=== PATIENT | female | born 1990 | race Caucasian/White ===

== ENCOUNTER 2016-09-30 14:37 | Emergency (ER) | payer SELFPAY ==
--- NOTE | 2016-09-30 14:52 | ED Physician Documentation ---
PD HPI NVD - Stated complaint Stated Complaint: N/V - Chief complaint Chief Complaint: Abd Pain - History obtained from History obtained from: Patient, Family - History of Present Illness Timing - onset: How many days ago (5) Timing - duration: Days (5) Timing - details: Waxing and waning Pain level max: 0 Pain level now: 0 Associated symptoms: Other (states unable to tolerated solid food for 5 days. Water sometimes stays down.). No: Fever, Abdominal pain, Chest pain, Hematemesis, Melena, Hematochezia, Dysuria, Hematuria, Vaginal bleeding Contributing factors: No: Sick contact, Bad food, Travel, Recent antibiotics, Alcohol use, Anticoagulated, Diabetes Improved by: Vomiting Worsened by: Eating Similar symptoms before: Has not had sx before Recently seen: Not recently seen - Additonal information Additional information: marijuana and zofran did not help. Vomiting and diarrhea x5 days. Vomits 4-5x per day. Diarrhea 2-3 times daily. Review of Systems Constitutional: denies: Fever, Chills Ears: denies: Ear pain Nose: denies: Rhinorrhea / runny nose, Congestion Respiratory: denies: Cough GI: reports: Nausea, Vomiting. denies: Diarrhea, Hematemesis, Bloody / black stool : reports: LMP (now). denies: Now EGA Skin: denies: Rash Musculoskeletal: denies: Neck pain, Back pain Neurologic: denies: Focal weakness, Numbness, Headache PD PAST MEDICAL HISTORY - Past Medical History Past Medical History: Yes Neuro: Headache/migraine Psych: Depression (post ) - Past Surgical History Past Surgical History: No - Present Medications Home Medications: Ambulatory Orders Medication Instructions Recorded Confirmed Ethinyl Estradiol/Drospirenone 1 tab PO DAILY 09/30/16 09/30/16 [Romina 28 Tablet] Ondansetron Odt [Zofran] 4 mg TL Q6H PRN #10 tablet 09/30/16 Promethazine [Phenergan] 25 mg PO Q6H PRN #10 tab 09/30/16 - Allergies Allergies/Adverse Reactions: Allergies Allergy/AdvReac Type Severity Reaction Status Date / Time azithromycin Allergy Anaphylaxis Verified 08/23/14 03:12 clindamycin Allergy Anaphylaxis Verified 09/30/16 14:41 Penicillins Allergy Anaphylaxis Verified 08/23/14 03:12 Sulfa (Sulfonamide Allergy Hives Verified 08/23/14 03:12 Antibiotics) - Living Situation Living Arrangement: reports: At home - Social History Does the pt smoke?: No Smoking Status: Never smoker Does the pt drink ETOH?: Yes Does the pt have substance abuse?: No - Immunizations Immunizations are current?: Yes - POLST Patient has POLST: No PD ED PE NORMAL - Vitals Vital signs reviewed: Yes - General General: Alert and oriented X 3, No acute distress - HEENT HEENT: Moist mucous membranes - Neck Neck: Supple, no meningeal sign - Cardiac Cardiac: RRR, Strong equal pulses - Respiratory Respiratory: No respiratory distress, Clear bilaterally - Abdomen Abdomen: Soft, Non tender, Non distended - Derm Derm: Warm and dry - Neuro Neuro: Alert and oriented X 3 - Psych Psych: Normal mood, Normal affect Results - Vitals Vitals: Vital Signs - 24 hr 09/30/16 09/30/16 09/30/16 14:39 17:01 18:16 Temperature 36.0 C L 36.8 C Heart Rate 78 69 53 L Respiratory 14 14 15 Rate Blood Pressure 110/75 121/94 H 113/77 O2 Saturation 100 99 99 Oxygen O2 Source Room air - Labs Labs: Laboratory Tests 09/30/16 09/30/16 09/30/16 15:18 15:31 15:31 WBC 6.2 RBC 4.44 Hgb 13.0 Hct 38.9 MCV 87.7 MCH 29.3 MCHC 33.4 RDW 13.6 Plt Count 196 MPV 9.3 Neut # 4.5 Lymph # 1.2 L [place] # 0.5 Eos # 0.0 Baso # 0.0 Absolute Nucleated RBC 0.00 Nucleated RBCs 0.0 Sodium 142 Potassium 3.4 L Chloride 107 Carbon Dioxide 25 Anion Gap 10.0 BUN 9 Creatinine 0.9 Estimated GFR (MDRD) 77 L Glucose 91 Calcium 9.3 Total Bilirubin 0.8 AST 16 ALT 21 Alkaline Phosphatase 50 Total Protein 7.9 Albumin 4.3 Globulin 3.6 Albumin/Globulin Ratio 1.2 Lipase 22 Urine Color YELLOW Urine Clarity HAZY Urine pH 6.0 Ur Specific [place] >=1.030 H Urine Protein 30 H Urine Glucose (UA) NEGATIVE Urine Ketones 40 H Urine Occult Blood SMALL H Urine Nitrite NEGATIVE Urine Bilirubin NEGATIVE Urine Urobilinogen 0.2 (NORMAL) Ur Leukocyte Esterase NEGATIVE Urine RBC 0-5 Urine WBC 0-3 Ur Squamous Epith Cells MANY Squamous H Urine Bacteria Few Urine Mucus Marked Strands Ur Microscopic Review INDICATED Urine Culture Comments NOT INDICATED Urine HCG, Qual NEGATIVE PD MEDICAL DECISION MAKING - ED course Complexity details: reviewed results, re-evaluated patient, considered differential, d/w patient ED course: Patient is a 26-year-old female who presents to the emergency department with nausea vomiting and diarrhea for the past 5 days. No recent antibiotics. Given IV fluids, Zofran and Phenergan. Vomiting resolved and is tolerating p.o. without difficulty. No diarrhea here. Abdomen is soft, nontender nondistended on serial exam. No longer lightheaded with standing. Likely viral gastroenteritis. Will continue supportive care and follow-up with her doctor. There is no blood in the stool or emesis. No fevers. Patient counseled regarding signs and symptoms for which I believe and urgent re- evaluation would be necessary. Patient with good understanding of and agreement to plan and is comfortable going home at this time This document was made in part using voice recognition software. While efforts are made to proofread this document, sound alike and grammatical errors may occur. Departure - Departure Disposition: 01 Home, Self Care Clinical Impression: Gastroenteritis Condition: Good Instructions: ED Gastroenteritis Non Infec Follow-Up: Daniela Domínguez MD [Primary Care Provider] - Within 1 week Prescriptions: Promethazine [Phenergan] 25 mg PO Q6H PRN #10 tab PRN Reason: Nausea / Vomiting Ondansetron Odt [Zofran] 4 mg TL Q6H PRN #10 tablet PRN Reason: Nausea / Vomiting Comments: Return if you worsen. This should improve over the next 24-48 hours. Discharge Date/Time: 09/30/16 18:30
[2016-09-30] MEDS ORDERED: SODIUM CHLORIDE 0.9% 1,000 ML IV ONE ×2 (15:02→17:07)
[2016-09-30] MEDS ORDERED: ONDANSETRON 4 MG/2 ML VIAL IVP STA (15:15)
[2016-09-30] MEDS ORDERED: SODIUM CHLORIDE FLUSH 0.9% 10 ML SYRINGE IVP ONE ×2 (15:19→16:27)
[2016-09-30] MEDS ORDERED: ONDANSETRON 4 MG/2 ML VIAL ONE (15:19)
[2016-09-30 15:39] LABS: BILIRUBIN,URINE NEGATIVE (NEGATIVE); HCG UR QUAL NEGATIVE; UA w/ MICROSCOPIC CHARGE YES
[2016-09-30] MEDS ORDERED: PROMETHAZINE INJ 25 MG in SODIUM CHLORIDE 0.9% 50 ML IV STA (15:57)
[2016-09-30 15:59] LABS: UR CULTURE IF IND NOT INDICATED; WBC,URINE 0-3 /HPF (0-5)
[2016-09-30 16:01] LABS: BASOPHILS % (AUTO) 0.4 %; EOSINOPHILS % (AUTO) 0.2 %; HCT - HEMATOCRIT 38.9 % (37.0-47.0); LYMPHOCYTES # (AUTO) 1.2 10^3/uL (1.5-3.5); LYMPHOCYTES % (AUTO) 19.8 %; MEAN CORPUSCULAR HEMOGLOBIN 29.3 pg (27.0-31.0); MEAN CORPUSCULAR HGB CONC 33.4 g/dL (32.0-36.0); MEAN CORPUSCULAR VOLUME 87.7 fL (81.0-99.0); MEAN PLATELET VOLUME 9.3 fL (7.9-10.8); MONOCYTES # (AUTO) 0.5 10^3/uL (0.0-1.0); MONOCYTES % (AUTO) 7.3 %; NEUTROPHILS # (AUTO) 4.5 10^3/uL (1.5-6.6); NEUTROPHILS % (AUTO) 72.3 %; RED BLOOD COUNT 4.44 10^6/uL (4.20-5.40); RED CELL DISTRIBUTION WIDTH 13.6 % (12.0-15.0); UNCORRECTED WHITE BLOOD COUNT 6.2 x10^3/uL; WHITE BLOOD COUNT 6.2 x10^3/uL (4.8-10.8)
[2016-09-30 16:06] LABS: ALBUMIN/GLOBULIN RATIO 1.2 (1.0-2.2); BILIRUBIN,TOTAL 0.8 mg/dL (0.2-1.0); CALCIUM 9.3 mg/dL (8.5-10.3); CREATININE 0.9 mg/dL (0.4-1.0); POTASSIUM 3.4 mmol/L (3.5-5.0); TOTAL PROTEIN 7.9 g/dL (6.7-8.2)
[2016-09-30] MEDS ORDERED: PROMETHAZINE 25 MG/1 ML VIAL ONE (16:27)
[2016-09-30 18:17] VITALS: BP 113/77
== END 2016-09-30 18:30 | disposition home or self-care (01) ==
LOC: ED 14:37
DX: K52.9 Noninfective gastroenteritis and colitis, unspecified (principal)
CPT/HCPCS: 36415; 80053; 81001; 81025; 83690; 85025; 96361; 96365; 96375; 99284; J7040; 81003; 87086

== ENCOUNTER 2019-06-25 19:26 | Outpatient (CLI) | payer MEDICAID | END 2019-06-25 19:27 | disposition home or self-care (01) | LOC: COV 19:26 | PROVIDERS: ATTEND Family Medicine | DX: R50.9 Fever, unspecified (principal); M79.10 Myalgia, unspecified site; R53.83 Other fatigue; J02.9 Acute pharyngitis, unspecified | CPT/HCPCS: 81599 ==

== ENCOUNTER 2020-01-18 13:25 | Emergency (ER) | payer MEDICAID ==
--- NOTE | 2020-01-18 14:13 | ED Physician Documentation ---
History of Present Illness - Stated complaint Stated Complaint: HEADACHE, SORE THROAT, BODY ACHES - Chief complaint Chief Complaint: General - History obtained from History obtained from: Patient - Additonal information Additional information: Patient comes emergency department complaining of runny nose, fatigue, and chills, as well as diarrhea and nausea, and is concerned about possible Covid exposure. She states that her daughter spent Thanksgiving with the daughter's father, who told the patient that he had a guest who had upper respiratory symptoms. Is not known whether the person ended up testing positive for Covid, but patient was told that her daughter "may have been" exposed to Covid. The daughter is not sick. The patient states she started to get symptoms last night. She states she has also vomited twice today. No fevers. No other complaints at this time. Review of Systems Ten Systems: 10 systems reviewed and negative Constitutional: reports: Chills, Fatigue Eyes: reports: Reviewed and negative Ears: reports: Reviewed and negative Nose: reports: Rhinorrhea / runny nose, Congestion Throat: reports: Reviewed and negative Cardiac: reports: Reviewed and negative. denies: Chest pain / pressure Respiratory: reports: Cough (When lying down.). denies: Dyspnea GI: reports: Nausea, Vomiting, Diarrhea : reports: Reviewed and negative Skin: reports: Reviewed and negative Musculoskeletal: reports: Reviewed and negative Neurologic: reports: Reviewed and negative Psychiatric: reports: Reviewed and negative Endocrine: reports: Reviewed and negative Immunocompromised: reports: Reviewed and negative PD PAST MEDICAL HISTORY - Past Medical History Past Medical History: No Psych: Depression - Past Surgical History Past Surgical History: No General: Cholecystectomy - Present Medications Home Medications: Ambulatory Orders Medication Instructions Recorded Confirmed Ethinyl Estradiol/Drospirenone 1 tab PO DAILY 09/30/16 09/30/16 [Romina 28 Tablet] Ondansetron Odt [Zofran] 4 mg TL Q6H PRN #10 tablet 09/30/16 Promethazine [Phenergan] 25 mg PO Q6H PRN #10 tab 09/30/16 - Allergies Allergies/Adverse Reactions: Allergies Allergy/AdvReac Type Severity Reaction Status Date / Time azithromycin Allergy Anaphylaxis Verified 01/18/20 13:29 clindamycin Allergy Anaphylaxis Verified 01/18/20 13:29 Penicillins Allergy Anaphylaxis Verified 01/18/20 13:29 Sulfa (Sulfonamide Allergy Hives Verified 01/18/20 13:29 Antibiotics) - Social History Does the pt smoke?: No Smoking Status: Never smoker Does the pt drink ETOH?: Yes Does the pt have substance abuse?: No Substance Use and Type: Marijuana - Immunizations Immunizations are current?: Yes - POLST Patient has POLST: No PD ED PE NORMAL - Vitals Vital signs reviewed: Yes - General General: Alert and oriented X 3, No acute distress - HEENT HEENT: Atraumatic, PERRL, EOMI, Moist mucous membranes, Pharynx benign - Neck Neck: Supple, no meningeal sign - Cardiac Cardiac: RRR, No murmur, Strong equal pulses - Respiratory Respiratory: No respiratory distress, Clear bilaterally - Abdomen Abdomen: Soft, Non tender, Non distended - Derm Derm: Normal color, Warm and dry, No rash - Extremities Extremities: No deformity, No edema, No calf tenderness / cord - Neuro Neuro: Alert and oriented X 3 - Psych Psych: Normal mood, Normal affect Results - Vitals Vitals: Oxygen O2 Source Room air - Labs Labs: Laboratory Tests 01/18/20 14:25 Coronavirus (PCR) NEGATIVE - Rads (name of study) cxr Radiology: Final report received, EMP read indepedently, See rad report (neg) PD MEDICAL DECISION MAKING - ED course Complexity details: reviewed results, re-evaluated patient, considered differential, d/w patient ED course: I discussed with the patient that it really is unclear whether the patient actually may have had a Covid exposure or not. However, she has been tested for Covid while here in the emergency department. The patient has also undergone chest x-ray, which is unremarkable. I discussed with the patient that she should quarantine until her results are back, which will be in the next 24 to 48 hours. If she thinks that her daughter has had a Covid exposure, the daughter should also quarantine with the patient. We have discussed home management of the symptoms, as well as the usual indications for return. Departure - Departure Disposition: 01 Home, Self Care Clinical Impression: Viral syndrome Condition: Stable Instructions: ED Viral Syndrome Comments: Your chest x-ray looks good. Whether or not you have been exposed to Covid is questionable. However, you have been tested today. Your results will be back sometime between 24 and 48 hours from the time of testing. It is not our policy to call back negative results, and so if you do not hear back within 48 hours, your test results were most likely negative. However, you should quarantine until you know for sure, so if you have not heard by 48 hours then you should call the hospital and make arrangements to find out your test results. If your results is positive for Covid, you will be contacted. Discharge Date/Time: 01/18/20 14:29
[2020-01-18 14:24] VITALS: BP 117/80
--- NOTE | 2020-01-18 14:34 | XRAY Report ---
PROCEDURE: Chest 1 View X-Ray INDICATIONS: cough, sob TECHNIQUE: One view of the chest was acquired. COMPARISON: None. FINDINGS: Surgical changes and devices: None. Lungs and pleura: No pleural effusions or pneumothorax. Lungs are clear. Mediastinum: Mediastinal contours appear normal. Heart size is normal. Bones and chest wall: No suspicious bony lesions. Overlying soft tissues appear unremarkable. IMPRESSION: No acute cardiopulmonary abnormality identified. Reviewed by: Marcos Antonio MD on 01/18/2020 2:33 PM [facility] Approved by: Marcos Antonio MD on 01/18/2020 2:33 PM [facility] Station ID: [id number]
== END 2020-01-18 14:29 | disposition home or self-care (01) ==
LOC: ED 13:25
DX: B34.9 Viral infection, unspecified (principal); Z20.828 Contact with and (suspected) exposure to other viral communicable diseases
CPT/HCPCS: 99284

== ENCOUNTER 2020-02-02 07:35 | Outpatient (CLI) | payer MEDICAID | END 2020-02-02 07:36 | disposition critical access hospital (66) | LOC: EMS 07:35 | PROVIDERS: ATTEND Surgery | DX: K92.0 Hematemesis (principal); R10.30 Lower abdominal pain, unspecified | CPT/HCPCS: A0425; A0429 ==

== ENCOUNTER 2020-02-02 08:17 | Emergency (ER) | payer MEDICAID ==
[2020-02-02] MEDS ORDERED: SODIUM CHLORIDE 0.9% 1,000 ML IV STA (08:25)
[2020-02-02] MEDS ORDERED: PANTOPRAZOLE 40 MG VIAL IVP STA (08:25)
[2020-02-02] MEDS ORDERED: HALOPERIDOL 5 MG/ML VIAL IVP ONE (08:25)
[2020-02-02] MEDS ORDERED: KETOROLAC 15 MG/ML VIAL IVP STA (08:25)
--- NOTE | 2020-02-02 08:28 | ED Physician Documentation ---
PD HPI NVD - Stated complaint Stated Complaint: VOMITING - History obtained from History obtained from: Patient, EMS - Additonal information Additional information: 29-year-old woman with history of remote cholecystectomy has been vomiting e specially in the mornings for the last 30 days straight. It is generally worsening and today was associated with a small amount of hematemesis. She has upper abdominal pain radiating to both kidneys. She is feeling dizzy and lightheaded with it. She has a history of anemia. is unlikely as she has Depo in place. She also took a test about a week and a half ago that was negative. She does use marijuana daily. Review of Systems Ten Systems: 10 systems reviewed and negative Constitutional: reports: Chills, Sweats Cardiac: denies: Chest pain / pressure, Palpitations Respiratory: denies: Dyspnea, Cough GI: reports: Abdominal Pain, Nausea, Vomiting, Other (No diarrhea, she does not remember when her last bowel movement was) Musculoskeletal: reports: Reviewed and negative PD PAST MEDICAL HISTORY - Past Medical History Past Medical History: Yes Psych: Depression Other Past Medical History: anemia - Past Surgical History Past Surgical History: Yes General: Cholecystectomy - Present Medications Home Medications: Ambulatory Orders Medication Instructions Recorded Confirmed Ethinyl Estradiol/Drospirenone 1 tab PO DAILY 09/30/16 09/30/16 [Romina 28 Tablet] Ondansetron Odt [Zofran] 4 mg TL Q6H PRN #10 tablet 09/30/16 Promethazine [Phenergan] 25 mg PO Q6H PRN #10 tab 09/30/16 Metoclopramide [Reglan] 10 mg PO Q6H PRN #20 tablet 02/02/20 - Allergies Allergies/Adverse Reactions: Allergies Allergy/AdvReac Type Severity Reaction Status Date / Time azithromycin Allergy Anaphylaxis Verified 02/02/20 08:26 clindamycin Allergy Anaphylaxis Verified 02/02/20 08:26 Penicillins Allergy Anaphylaxis Verified 02/02/20 08:26 Sulfa (Sulfonamide Allergy Hives Verified 02/02/20 08:26 Antibiotics) - Social History Does the pt smoke?: No Smoking Status: Never smoker Does the pt drink ETOH?: Yes Does the pt have substance abuse?: No Substance Use and Type: Marijuana - Family History Family history: reports: Non contributory - Immunizations Immunizations are current?: Yes - POLST Patient has POLST: No PD ED PE NORMAL - Vitals Vital signs reviewed: Yes - General General: Alert and oriented X 3, No acute distress - HEENT HEENT: PERRL, EOMI - Neck Neck: Supple, no meningeal sign, No bony TTP - Cardiac Cardiac: RRR, No murmur - Respiratory Respiratory: No respiratory distress, Clear bilaterally - Abdomen Abdomen: Normal bowel sounds, Soft, Non tender - Back Back: No CVA TTP, No spinal TTP - Derm Derm: Normal color, Warm and dry - Extremities Extremities: No edema, No calf tenderness / cord - Neuro Neuro: Alert and oriented X 3, Normal speech Results - Vitals Vitals: Vital Signs - 24 hr 02/02/20 02/02/20 02/02/20 08:26 08:53 09:04 Temperature 36 C L Heart Rate 76 53 L 74 Respiratory 18 16 18 Rate Blood Pressure 124/82 H 112/58 L 125/94 H O2 Saturation 99 100 02/02/20 09:24 Temperature Heart Rate 57 L Respiratory 18 Rate Blood Pressure 125/94 H O2 Saturation 100 Oxygen O2 Source Room air - Labs Labs: Laboratory Tests 02/02/20 02/02/20 02/02/20 08:30 08:30 08:30 WBC 7.4 RBC 4.63 Hgb 13.5 Hct 40.3 MCV 87.0 MCH 29.2 MCHC 33.5 RDW 14.0 Plt Count 233 MPV 10.9 H Neut # (Auto) 5.9 Lymph # (Auto) 1.0 L [place] # (Auto) 0.4 Eos # (Auto) 0.0 Baso # (Auto) 0.0 Absolute Nucleated RBC 0.00 Nucleated RBC % 0.0 Sodium 137 Potassium 3.4 L Chloride 105 Carbon Dioxide 22 Anion Gap 10.0 BUN 8 Creatinine 0.7 Estimated GFR (MDRD) 100 Glucose 100 Calcium 9.2 Total Bilirubin 0.5 AST 18 ALT 23 Alkaline Phosphatase 51 Total Protein 7.4 Albumin 4.0 Globulin 3.4 Albumin/Globulin Ratio 1.2 Lipase 30 Urine Color YELLOW Urine Clarity CLEAR Urine pH 7.0 Ur Specific [place] 1.015 Urine Protein NEGATIVE Urine Glucose (UA) NEGATIVE Urine Ketones 40 H Urine Occult Blood NEGATIVE Urine Nitrite NEGATIVE Urine Bilirubin NEGATIVE Urine Urobilinogen 0.2 (NORMAL) Ur Leukocyte Esterase SMALL H Urine RBC 0-5 Urine WBC 0-3 Ur Squamous Epith Cells FEW Squamous Urine Bacteria Rare Ur Microscopic Review INDICATED Urine Culture Comments INDICATED Urine HCG, Qual POSITIVE Urine Opiates Screen NEGATIVE Ur Oxycodone Screen NEGATIVE Urine Methadone Screen NEGATIVE Ur Propoxyphene Screen NEGATIVE Ur Barbiturates Screen NEGATIVE Ur Tricyclics Screen NEGATIVE Ur Phencyclidine Scrn NEGATIVE Ur Amphetamine Screen NEGATIVE U Methamphetamines Scrn NEGATIVE U Benzodiazepines Scrn NEGATIVE Urine Cocaine Screen NEGATIVE U Cannabinoids Screen POSITIVE H PD MEDICAL DECISION MAKING - ED course ED course: 29-year-old woman presents with vomiting, about 30 days worth. Daily and in the morning. She is a daily marijuana user. She checked for at home and it was negative. Today's test was positive which surprised her. I did a bedside ultrasound which demonstrated a single live intrauterine with a heart rate of 158 and crown-rump length consistent with an 8-week 2-day . She felt much better after some meds here although had some akathisia with Haldol. Obviously we will use that going forward now that we know about the positive test. She declined a prescription for vitamins. She will follow-up with her director of maintenance. Departure - Departure Disposition: 01 Home, Self Care Clinical Impression: Hyperemesis gravidarum Condition: Good Record reviewed to determine appropriate education?: Yes Instructions: ED Preg Morning Sickness Prescriptions: Metoclopramide [Reglan] 10 mg PO Q6H PRN #20 tablet PRN Reason: nausea or headache Comments: Take a multivitamin daily with folate. Return if worsening. Follow-up with your [facility], next available appointment.
[2020-02-02 08:48] LABS: BASOPHILS % (AUTO) 0.3 %; EOSINOPHILS % (AUTO) 0.1 %; HGB - HEMOGLOBIN 13.5 g/dL (12.0-16.0); LYMPHOCYTES % (AUTO) 14.1 %; MEAN CORPUSCULAR HEMOGLOBIN 29.2 pg (27.0-31.0); MEAN CORPUSCULAR HGB CONC 33.5 g/dL (32.0-36.0); MEAN PLATELET VOLUME 10.9 fL (7.9-10.8); MONOCYTES # (AUTO) 0.4 10^3/uL (0.0-1.0); MONOCYTES % (AUTO) 5.2 %; NEUTROPHILS # (AUTO) 5.9 10^3/uL (1.5-6.6); PLT - PLATELET COUNT 233 10^3/uL (130-450); RED BLOOD COUNT 4.63 10^6/uL (4.20-5.40); WHITE BLOOD COUNT 7.4 x10^3/uL (4.8-10.8)
[2020-02-02 08:51] LABS: MUDS CUTOFF CONCENTRATIONS CUTOFF CONC BELOW:
[2020-02-02 09:05] VITALS: BP 125/94
[2020-02-02 09:05] LABS: ALBUMIN/GLOBULIN RATIO 1.2 (1.0-2.2); BILIRUBIN,TOTAL 0.5 mg/dL (0.2-1.0); CALCIUM 9.2 mg/dL (8.5-10.3); CREATININE 0.7 mg/dL (0.4-1.0); TOTAL PROTEIN 7.4 g/dL (6.7-8.2)
[2020-02-02] MEDS ORDERED: diphenhydrAMINE INJ 50 MG/ML VIAL IVP STA (09:05)
[2020-02-02 09:07] LABS: BILIRUBIN,URINE NEGATIVE (NEGATIVE); GLUCOSE, URINE (UA) NEGATIVE (NEGATIVE); KETONES,URINE (UA) 40 mg/dL (NEGATIVE); LEUKOCYTE ESTERASE, URINE SMALL (NEGATIVE); NITRITE,URINE NEGATIVE (NEGATIVE); OCCULT BLOOD,URINE NEGATIVE (NEGATIVE); PROTEIN,URINE NEGATIVE (NEGATIVE); UROBILINOGEN,URINE 0.2 (NORMAL) E.U./dL (NORMAL)
[2020-02-02 09:09] LABS: CLARITY,URINE CLEAR (CLEAR); HCG UR QUAL POSITIVE
[2020-02-02] MEDS ORDERED: IOVERSOL 320 100 ML VIAL IVP ONE (09:17)
[2020-02-02 09:27] LABS: AMPHETAMINE SCREEN,URINE NEGATIVE (NEGATIVE); BENZODIAZEPINES SCREEN, URINE NEGATIVE (NEGATIVE); COCAINE SCREEN URINE NEGATIVE (NEGATIVE); METHADONE SCREEN, URINE NEGATIVE (NEGATIVE); METHAMPHETAMINES SCREEN, URINE NEGATIVE (NEGATIVE); OPIATE SCREEN, URINE NEGATIVE (NEGATIVE); OXYCODONE SCREEN, URINE NEGATIVE (NEGATIVE); PROPOXYPHENE SCREEN, URINE NEGATIVE (NEGATIVE); TRICYCLIC ANTIDEPRESSANT,URINE NEGATIVE (NEGATIVE)
[2020-02-02 09:32] LABS: BACTERIA,URINE Rare /HPF (None Seen); RBC,URINE 0-5 /HPF (0-5); SQUAMOUS EPITHELIAL CELL,UR FEW Squamous (<= Few)
== END 2020-02-02 10:41 | disposition home or self-care (01) ==
LOC: EDUNIT# → ED 08:17
DX: O21.0 Mild hyperemesis gravidarum (principal); O99.321 Drug use complicating pregnancy, first trimester; F12.90 Cannabis use, unspecified, uncomplicated; Z3A.08 8 weeks gestation of pregnancy; G25.71 Drug induced akathisia; T43.4X5A Adverse effect of butyrophenone and thiothixene neuroleptics, initial encounter; Y92.238 Other place in hospital as the place of occurrence of the external cause
CPT/HCPCS: 36415; 80053; 80306; 81001; 81025; 83690; 85025; 87086; 96361; 96374; 96375; 99284; 99285; J1200; 81003; 84703

== ENCOUNTER 2020-08-26 20:52 | Outpatient (CLI) | payer MEDICAID | END 2020-08-26 20:53 | disposition short-term general hospital (02) | LOC: EMS 20:52 | DX: Z34.83 Encounter for supervision of other normal pregnancy, third trimester (principal) | CPT/HCPCS: A0425; A0429; A0999 ==

== ENCOUNTER 2023-07-13 05:12 | Outpatient (CLI) | payer MEDICAID | END 2023-07-13 23:59 | disposition critical access hospital (66) | LOC: EMS 05:12 | DX: R07.89 Other chest pain (principal); R42 Dizziness and giddiness; R11.0 Nausea | CPT/HCPCS: A0425; A0427; A0999 ==